=== PATIENT | female | born 1950 | race African-American/Black ===

== ENCOUNTER 2018-07-31 14:00 | Inpatient (IN) | payer MEDICARE, MEDICAID ==
[2018-07-31] VITALS (428 sets, daily range): BP systolic 130–149; BP diastolic 81–98; PULSE 102–115; TEMP 98.4–99.5; O2SAT 90–99
[~2018-07-31] VITALS: Ht 167.6 cm; Wt 92.5 kg
[2018-07-31] MEDS ORDERED: BREO IH (15:16)
[2018-07-31] MEDS ORDERED: DULCOLAX TAB5 MG PO (15:17)
[2018-07-31] MEDS ORDERED: HCTZ12.5TAB PO (15:18)
[2018-07-31] MEDS ORDERED: IBU400 MG PO (15:19)
[2018-07-31] MEDS ORDERED: INCRUSE EL62.5 MCG/A IH (15:20)
[2018-07-31] MEDS ORDERED: MELATONIN5 M1 SL (15:21)
[2018-07-31] MEDS ORDERED: MULTI VITAMINS1 TAB PO (15:22)
[2018-07-31] MEDS ORDERED: NORVASC 10MG10 MG PO (15:23)
[2018-07-31] MEDS ORDERED: RISPERDAL3 MG PO (15:24)
[2018-07-31] MEDS ORDERED: RISPERDAL4 MG PO (15:26)
[2018-07-31] MEDS ORDERED: ZOCOR 10MG10 MG PO (15:27)
[2018-07-31] MEDS ORDERED: GLUCOPHAGE500 MG/TAB PO (15:28)
[2018-07-31] MEDS ORDERED: CARTIA XT120 MG PO (15:28)
[2018-07-31] MEDS ORDERED: MUCINEX 60600 MG/TA1 PO (15:30)
[2018-07-31] MEDS ORDERED: TYLENOL 325MG325 MG PO (15:30)
[2018-07-31] MEDS ORDERED: RT ALBUTER2.5 MG/0.5 IH (15:32)
[2018-07-31] MEDS ORDERED: ALUMINUM & MAG355 ML PO (15:34)
[2018-07-31] MEDS ORDERED: GOOD NEIGH1200 MG/15 PO (15:35)
[2018-07-31] MEDS ORDERED: ROBITUSSIN DM 105 ML PO (15:36)
[2018-07-31 16:04] LABS: BASO % 0.2 % (0.0-2.0); GRAN # 11.7 (1.4-6.5); GRAN % 90.4 % (42.2-75.2); HEMATOCRIT 47.5 % (37.0-47.0); LYMPH % 7.7 % (20.0-51.0); MEAN CELL VOLUME 85 fl (80.0-100.0); MEAN CORPUSCULAR HEMOGLOBIN 27 pg (27.0-31.0); MEAN CORPUSCULAR HGB CONC 32 g/dl (33.0-37.0); MEAN PLATELET VOLUME 10.4 fl (7.4-10.4); MONO # 0.1 (0.1-0.6); PLATELET COUNT 270 K/mm3 (130-400); RED BLOOD COUNT 5.59 M/mm3 (4.10-5.30); REDCELL DISTRIBUTION WIDTH-CV 16.2 % (11.5-14.5)
[2018-07-31 16:12] LABS: ALBUMIN 4.3 gm/dL (3.5-5.0); BILIRUBIN,TOTAL 0.2 mg/dL (0.0-1.0); CALCIUM 9.6 mg/dL (8.4-10.2); CREATININE, serum 0.64 mg/dL (0.52-1.25); POTASSIUM 4.4 mmol/L (3.4-5.0); TOTAL PROTEIN 7.6 gm/dL (6.4-8.2)
[2018-08-01] VITALS (661 sets, daily range): BP systolic 113–147; BP diastolic 53–93; PULSE 86–109; TEMP 98–99.2; O2SAT 86–100
[2018-08-01 05:35] LABS: BASO % 0.2 % (0.0-2.0); GRAN # 7.3 (1.4-6.5); GRAN % 83.8 % (42.2-75.2); HEMATOCRIT 46.5 % (37.0-47.0); HEMOGLOBIN 14.9 g/dl (12.5-16.0); LYMPH # 1.1 (1.2-3.4); LYMPH % 12.9 % (20.0-51.0); MEAN CELL VOLUME 85 fl (80.0-100.0); MEAN CORPUSCULAR HEMOGLOBIN 27 pg (27.0-31.0); MEAN CORPUSCULAR HGB CONC 32 g/dl (33.0-37.0); MEAN PLATELET VOLUME 10.1 fl (7.4-10.4); MONO # 0.2 (0.1-0.6); MONO % 2.3 % (1.7-9.3); PLATELET COUNT 262 K/mm3 (130-400); REDCELL DISTRIBUTION WIDTH-CV 15.8 % (11.5-14.5)
[2018-08-01 06:17] LABS: CALCIUM 9.2 mg/dL (8.4-10.2); CREATININE, serum 0.62 mg/dL (0.52-1.25)
[2018-08-02 04:11] VITALS: BP 113/57; PULSE 68; TEMP 98
[2018-08-02 05:53] LABS: BASO % 0.1 % (0.0-2.0); GRAN # 12.6 (1.4-6.5); GRAN % 88.7 % (42.2-75.2); HEMOGLOBIN 14.2 g/dl (12.5-16.0); MEAN CELL VOLUME 85 fl (80.0-100.0); MEAN CORPUSCULAR HEMOGLOBIN 27 pg (27.0-31.0); MEAN CORPUSCULAR HGB CONC 32 g/dl (33.0-37.0); MEAN PLATELET VOLUME 11.1 fl (7.4-10.4); MONO # 0.5 (0.1-0.6); MONO % 3.5 % (1.7-9.3); PLATELET COUNT 300 K/mm3 (130-400); RED BLOOD COUNT 5.28 M/mm3 (4.10-5.30); REDCELL DISTRIBUTION WIDTH-CV 15.9 % (11.5-14.5)
[2018-08-02 06:01] LABS: CALCIUM 9.3 mg/dL (8.4-10.2); CREATININE, serum 0.66 mg/dL (0.52-1.25); POTASSIUM 5.1 mmol/L (3.4-5.0)
[2018-08-02 07:50] VITALS: BP 139/74; PULSE 89; TEMP 98.6
[2018-08-02 13:00] VITALS: BP 156/68; PULSE 112; TEMP 98.6
[2018-08-02 15:55] VITALS: BP 125/62; PULSE 102; TEMP 99
[2018-08-02 19:40] VITALS: BP 143/62; PULSE 102; TEMP 97.2
[2018-08-02 23:53] VITALS: BP 130/68; PULSE 100; TEMP 98.5
[2018-08-03 04:03] VITALS: BP 139/68; PULSE 94; TEMP 98.8
[2018-08-03 07:46] LABS: BASO % 0.1 % (0.0-2.0); GRAN # 9.2 (1.4-6.5); GRAN % 69.3 % (42.2-75.2); HEMATOCRIT 45.6 % (37.0-47.0); HEMOGLOBIN 14.5 g/dl (12.5-16.0); LYMPH # 2.6 (1.2-3.4); LYMPH % 19.5 % (20.0-51.0); MEAN CELL VOLUME 85 fl (80.0-100.0); MEAN CORPUSCULAR HEMOGLOBIN 27 pg (27.0-31.0); MEAN CORPUSCULAR HGB CONC 32 g/dl (33.0-37.0); MEAN PLATELET VOLUME 10.8 fl (7.4-10.4); MONO # 1.4 (0.1-0.6); MONO % 10.4 % (1.7-9.3); PLATELET COUNT 305 K/mm3 (130-400); RED BLOOD COUNT 5.37 M/mm3 (4.10-5.30); REDCELL DISTRIBUTION WIDTH-CV 15.9 % (11.5-14.5)
[2018-08-03 08:00] LABS: CALCIUM 9.1 mg/dL (8.4-10.2); CREATININE, serum 0.7 mg/dL (0.52-1.25); POTASSIUM 4.1 mmol/L (3.4-5.0)
[2018-08-03 08:01] VITALS: BP 105/57; PULSE 90; TEMP 98.3
[2018-08-03 09:35] VITALS: BP 105/57; PULSE 90; TEMP 98.3
== END 2018-08-03 09:55 | DRG 915 ==
LOC: ICU 14:00 → SURG 08-01 14:34
PROVIDERS: Internal Medicine
DX: T78.3XXA Angioneurotic edema, initial encounter (principal); J18.9 Pneumonia, unspecified organism; J44.0 Chronic obstructive pulmonary disease with (acute) lower respiratory infection; I50.32 Chronic diastolic (congestive) heart failure; I11.0 Hypertensive heart disease with heart failure; F20.9 Schizophrenia, unspecified; E11.43 Type 2 diabetes mellitus with diabetic autonomic (poly)neuropathy; K31.84 Gastroparesis; E78.5 Hyperlipidemia, unspecified; F17.210 Nicotine dependence, cigarettes, uncomplicated; R09.02 Hypoxemia; E87.5 Hyperkalemia
CPT/HCPCS: 99223-AI; 99232-AI; 99239; J1200; J1650; J1815; J1940; J1956; J2543; J2920

== ENCOUNTER 2020-02-10 09:14 | Outpatient (CLI) | payer MEDICARE, MEDICAID ==
[~2020-02-10] VITALS: Ht 167.6 cm; Wt 99.0 kg
[2020-02-10] VITALS (17 sets, daily range): BP systolic 121–154; BP diastolic 66–95; PULSE 56–98
[~2020-02-10 09:14] MED LIST: ALUMINUM & MAG355 ML PO; BASAGLAR K100 UNIT/1 SQ; BIOFREEZE 0.2%-1 GE1 TOP; BREO IH; BYDUREON B2 MG/0.85 SQ; CARDIZEM CD 12120 MG PO; CARTIA XT120 MG PO; CORRECTIVE LAXAT5 MG PO; DULCOLAX TAB5 MG PO; GLUCOPHAGE500 MG/TAB PO; GOOD NEIGH1200 MG/15 PO; HCTZ12.5TAB PO; IBU400 MG PO; INCRUSE EL62.5 MCG/A IH; LASIX 40MG TABL40 MG PO; LINZESS72 MCG PO; MELATONIN5 M1 SL; MUCINEX 60600 MG/TA1 PO; MULTI VITAMINS1 TAB PO; NEURONTIN300 MG/CAP PO; NEURONTIN800 MG/TAB PO; NORVASC 10MG10 MG PO; NORVASC2.5 MG PO; NOVOLOG 100U100 U/M1 SQ; RISPERDAL2 MG PO; RISPERDAL3 MG PO; RISPERDAL4 MG PO; ROBITUSSIN DM 105 ML PO; RT ALBUTER2.5 MG/0.5 IH; TYLENOL 325MG325 MG PO; VITAMIN B100 CO1 TAB PO; ZOCOR 10MG10 MG PO
[2020-02-10] MEDS ORDERED: BREO IH (09:56)
[2020-02-10] MEDS ORDERED: VITAMIN B COMPL1 SGL PO (09:56)
[2020-02-10] MEDS ORDERED: MUCINEX 60600 MG/TA1 PO (10:02)
--- NOTE | 2020-02-10 10:55 | NUR ---
Pt to ct per wheelchair. Pt up and positioned in prone position on ct table, multiple attempts made to get pt in a position of comfort. Monitors applied and O2 on at 2l/nc.
--- NOTE | 2020-02-10 11:10 | NUR ---
Dr Radford into talk with pt regarding procedure.
--- NOTE | 2020-02-10 11:22 | NUR ---
Specimens obtained by Dr Radford and placed in formalin. Specimen labeled.
--- NOTE | 2020-02-10 14:03 | NUR ---
Discharge instructions given to pt and [facility] staff.INt removed,catheter tip intact.pt escorted out via wheelchair.
== END 2020-02-10 16:29 | disposition home or self-care (01) ==
LOC: COL.RAD 09:14
DX: R91.8 Other nonspecific abnormal finding of lung field (principal)

== ENCOUNTER → 2020-03-23 | Outpatient (CLI) | payer MEDICARE, MEDICAID ==
[~2020-03-23] MED LIST changes: +B COMPLEX #11 TA1 PO; +MAALOX ADVANCED1 CTB PO; +VITAMIN B COMPL1 SGL PO
== END ==
LOC: COL.LAB 07:50
DX: R91.8 Other nonspecific abnormal finding of lung field (principal); Z20.828 Contact with and (suspected) exposure to other viral communicable diseases

== ENCOUNTER 2020-03-27 08:36 | Outpatient (CLI) | payer MEDICARE, MEDICAID ==
[2020-03-27] VITALS (21 sets, daily range): BP systolic 102–153; BP diastolic 44–108; PULSE 72–104
[~2020-03-27] VITALS: Ht 167.6 cm; Wt 100.7 kg
[~2020-03-27 08:36] MED LIST changes: +MASON NATURAL S1 CAP PO; -MULTI VITAMINS1 TAB PO
[2020-03-27] MEDS ORDERED: HYDROCORTISONE30 G3 TP (09:40)
--- NOTE | 2020-03-27 09:55 | NUR ---
[facility]
--- NOTE | 2020-03-27 10:20 | NUR ---
[facility]
--- NOTE | 2020-03-27 10:55 | NUR ---
Patient arrived to room 15.Per report pt wears oxygen at night,placed on 2 liters via nasal cannula.Bandaid observed clean and dry.call light within reach.
--- NOTE | 2020-03-27 14:16 | NUR ---
Discharge instructions given to pt.pt verbalizes understanding.INT removed,catheter tip intact.Pt escorted out via wheelchair by this nurse.Eliana,[facility] transportation here to pick pt up.Report called to nurse Emilia at [facility].
== END 2020-03-27 14:45 | disposition home or self-care (01) ==
LOC: COL.RAD 08:36
DX: R91.1 Solitary pulmonary nodule (principal)
CPT/HCPCS: J3010

== ENCOUNTER → 2020-12-07 | Outpatient (CLI) | payer MEDICARE, MEDICAID ==
[~2020-12-07] VITALS: Ht 167.6 cm; Wt 107.7 kg
[~2020-12-07] MED LIST changes: +HYDROCORTISONE30 G3 TP; +MILK OF MA400 MG/52 PO; +NORCO 325 MG-51 TAB PO; +RISPERDAL 1M1 MG/TAB PO; +ZANAFLEX CAPSULE2 MG PO
[2020-12-07 09:17] VITALS: BP 160/82; PULSE 103
--- NOTE | 2020-12-07 10:00 | NUR ---
Dr Weinstein into talk with pt. Dr Weinstein cancels procedure at this time.
--- NOTE | 2020-12-07 10:10 | NUR ---
[facility] notified that procedure was canceled. Pt given coffee and muffin to eat. Pt up to get dressed prior to snack. Int removed by Andreia MALAVE
--- NOTE | 2020-12-07 10:40 | NUR ---
Pt down to front lobby to await the transportation. Pt given orange packet to take back with pt. Pt denies complaints at this time.
== END ==
LOC: COL.RAD 08:56
DX: C34.11 Malignant neoplasm of upper lobe, right bronchus or lung (principal)